=== PATIENT | female | born 1970 | race Caucasian/White ===

== ENCOUNTER 2024-03-02 18:47 | Emergency (ER) | payer OTHER, SELFPAY ==
[2024-03-02 18:49] VITALS: BP 151/103
[2024-03-02] MEDS: BENADRYL 50 MG IV (20:34)
[2024-03-02] MEDS: COMPAZINE 10 MG IV (20:34)
[2024-03-02] MEDS: NSS 1000 IV (20:34)
[2024-03-02 21:25] VITALS: BP 126/77
--- NOTE | 2024-03-02 21:28 | ED.GENMED ---
History of Present Illness
General
Chief Complaint: Headache
Source: patient
Exam Limitations: none
Time Seen by Provider: 03/02/24 19:50
Nursing documentation reviewed up to this point in time: agreed with
History of Present Illness
History of Present Illness:
53 yo female w h/o migraines last one 3 months ago, here for headache every day all day for past 2 weeks. H/A keeps her up part of the night. She's had no n/v until today when she vomited once.
Different from her typical migraines as she usually has photophobia and phonophobia and doesn't have these. Typical migraine is generalized and this one stems from left occiput with sometimes stabbing pains top of head. She has throbbing pain in the
ears and teeth which is new.
Saw PCP Dr. Gonzalez 1 week ago and prescribed Flexeril and OTC Migraine med with Belladonna in it and Ibuprofen which she states helps 'some.'
Drove to and from [place] 4 and [address] Dr. Gonzalez again today and has CT scan scheduled for Friday (3 days).
Developed nausea, felt she had to vomit, had sudden urge to move bowels and had a diarrhea stool and vomited immediately afterwards. Does feel better after this
Contacted Dr. Gonzalez again after this and sent here for head CT
Denies change in vision, denies weakness in extremities.
Past History
Past History
ED Past Medical History: None
ED Past Surgical History: Other (Tubal ligation)
Social History
Tobacco: Non-smoker
Alcohol: None
Drug: None
Personal: Other (Fianc�)
Living: with family
Employment: Employed (construction)
Family History
Family History: Other (n/c)
Review of Systems
Review of Systems
Allergies reviewed?: Yes
All Other Systems: ROS reviewed and negative except as documented in HPI and ROS
Constitutional: Denies fever
Respiratory: Denies trouble breathing
Cardiac: Denies chest pain
ABD/GI: Reports nausea, vomiting and diarrhea; Denies abdominal pain
: Denies dysuria or difficulty voiding
Musculoskeletal: Reports no symptoms
Skin: Reports no symptoms
Neurological: Reports headache; Denies dizzy, weakness or numbness
Phy Exam
Physical Exam
Physical Exam:
GENERAL: No acute distress. A&Ox3.
CONSTITUTIONAL: Afebrile.
EYES: PERRL, conjunctivae normal
Neck: Supple
ENMT: moist mucus membranes, Pharynx nl, TMs normal
RESPIRATORY: Regular respirations, nonlabored, lungs clear.
CARDIOVASCULAR: Regular rate and rhythm, no murmurs, no rubs.
GI: Soft, nontender, normal BS
MUSCULOSKELETAL: Moves with ease. Well perfused.
SKIN: Warm, dry, pink
PSYCH: Normal mood and affect. Well kept, interactive and appropriate
NEUROLOGIC: Awake, alert and oriented. Cranial nerves II through XII intact. [id number] intact. No focal neurological deficits. Ambulating well with steady gait.
Course
Orders/Labs/Results
Orders:
Orders
03/02/24 20:09
CT Head W/o Iv Contrast Urgent
Comment:
Reason For Exam: headache for 2 weeks
0.9% Sodium Chloride 1000 ml [Nss] 1,000 ml IV BOLUS
Diphenhydramine [Benadryl] 50 mg IV NOW STA
Prochlorperazine [Compazine] 10 mg IV NOW STA
Vital Signs
Initial and Last Documented VS:
Initial Vital Signs
Temp Pulse Resp BP Pulse Ox
98.3 F 58 18 151/103 97
03/02/24 18:49 03/02/24 18:49 03/02/24 18:49 03/02/24 18:49 03/02/24 18:49
Last Documented Vital Signs
Temp Pulse Resp BP Pulse Ox
98.3 F 83 16 126/77 98
03/02/24 18:49 03/02/24 21:25 03/02/24 21:25 03/02/24 21:25 03/02/24 21:25
MDM/Problems Addressed
Differential Diagnosis Includes:
atypical migraine, tension headache
MDM/Problems Addressed:
53 yo female w h/o migraines last one 3 months ago, here for headache every day all day for past 2 weeks. H/A keeps her up part of the night. She's had no n/v until today when she vomited once.
Different from her typical migraines as she usually has photophobia and phonophobia and doesn't have these. Typical migraine is generalized and this one stems from left occiput with sometimes stabbing pains top of head. She has throbbing pain in the
ears and teeth which is new.
Saw PCP Dr. Gonzalez 1 week ago and prescribed Flexeril and OTC Migraine med with Belladonna in it and Ibuprofen which she states helps 'some.'
Drove to and from [place] 4 and [address] Dr. Gonzalez again today and has CT scan scheduled for Friday (3 days).
Developed nausea, felt she had to vomit, had sudden urge to move bowels and had a diarrhea stool and vomited immediately afterwards. Does feel better after this
Contacted Dr. Gonzalez again after this and sent here for head CT
Denies change in vision, denies weakness in extremities.
Pleasant, NAD, afebrile
No focal neurologic abnormality
9:[address] head: No acute abnormality
In to re evaluate pt. After IVFs and medications, pt headache is gone.
She is comfortable being discharged and will f/u with Dr. Gonzalez tomorrow.
*Critical Care Note
Total Time (30-74mins, 75-104mins- exclusive of procedures): Not Applicable
ED Attending Note
-
Portions of this chart may have been created with voice recognition software.� Occasional wrong word or��sound alike� substitutions may have occurred due to the inherent limitations of voice recognition software.
Discharge Plan
Departure
Patient Disposition: Home (Routine Discharge)
Date of Disposition: 03/02/24
Time of Disposition: 21:42
Patient with high blood pressure during this ER visit?: No
Condition: Good
Discharge Problem:
Headache
Instructions: Headache, Adult (DC)
Prescriptions:
No Action
alprazolam 0.25 MG tablet
0.25 mg PO BID
pantoprazole 40 MG tablet,delayed release (DR/EC)
40 mg PO DAILY
oseltamivir 75 MG capsule
75 mg PO BID Qty: 10 0RF
levofloxacin 500 MG/20 ML solution
500 mg PO DAILY Qty: 4 0RF
metronidazole 250 MG tablet
250 mg PO TID Qty: 14 0RF
Referrals:
Janeen Gonzalez MD [Family Provider] - Tomorrow
Activity Restrictions/Additional Instructions:
As we discussed, use your usual medications for your headache. Touch base with Dr. Gonzalez tomorrow for update on how you are feeling.
Interventions
Interventions:
*Risk Screen - Suicide Last Done: 03/02/24 21:26
*General Assessment Last Done: 03/02/24 21:26
*Neglect/Abuse Screening Last Done: 03/02/24 21:26
*ED COVID-19 Vaccine History Last Done: 03/02/24 21:26
ED- Neurological Assessment Last Done: 03/02/24 21:25
Discharge Date and Time
Print Language: CHINESE
== END 2024-03-02 21:58 | disposition home or self-care (01) ==
LOC: EMR 18:47
PROVIDERS: EMERGENCY PHYSICIAN Emergency Medicine; FAMILY PHYSICIAN Internal Medicine
DX: R51.9 Headache, unspecified (principal)
CPT/HCPCS: 99284; 96374; 96375; 96361; 70450